=== PATIENT | male | born 1980 | race Caucasian/White ===

== ENCOUNTER 2024-07-04 08:00 | Emergency (ER) | payer BC, SELFPAY ==
[2024-07-04 08:13] VITALS: BP 123/81; PULSE 85; RESP 18; TEMP 37; O2SAT 99
--- OUTSIDE RECORDS SUMMARY | 2024-07-04 08:15 | XMS_ITS | Referral Summary ---
Author Organization [facility] [address] Address [address] [place] [address] Care Team Providers Care Supply And Distribution Manager Name Role Phone Monico Vaughn MD Primary Care Provide r Noemy Reyna Unavailable Unavailable Allergies No known active allergies Medications sertraline (ZOLOFT) 100 mg tablet Take 100 mg by mouth daily 05/10/2021 Active ALPRAZolam (XANAX) 0.5 mg tablet Take by mouth 3 (three) times a day as needed 04/23/2021 Active Active Problems No known active problems Immunizations Name Administration Dates Next Due DTP 11/07/1986, 4,07/21/1983,08/07,03/26/1982,01/29/1982 DTaP 11/07/1986, 4,07/21/1983,08/07,03/26/1982,01/29/1982 Hep B Vaccine 11/23/1998,03/17/1998,02/05/1998 Hep B, Unspecified 11/23/1998,03/17/1998, 998 IPV 11/07/1986, 4,05/19/1982,03/26,01/29/1982 Influenza, Quadrivalent, Spl it, Intramuscular 04/03/2019 Influenza, Quadrivalent, Spl it, Preservative Free, Intramuscular 04/05/2018 Influenza, Trivalent, Preser vative Free, Intramuscular 04/03/2017,04/03/2016 MMR 01/19/1995,02/22/1983 OPV 11/07/1986, 4,05/19/1982,03/26,01/29/1982 Td, adsorbed 03/17/1998,11/28/1989 Social History Tobacco Use Types Packs/Day Years Used Date Smoking Tobacco: Every Day Alcohol Use Standard Drinks/Week Comments Yes 0 (1 standard drink = 0.6 oz pure alcohol) drinks 3-4 week/ beer and vodka Personal Safety Answer Date Recorded Getting School Help Needed Not on file 08/04 Sex and Gender Information Value Date Recorded Sex Assigned at Not on file 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 Gender Identity Not on file Sexual Orientation Not on file Last Filed Vital Signs Vital Sign Reading Time Taken Comments Blood Pressure 124/84 06/22/2021 2:23 PM MAINTENANCE HELPER UTILITY ENGINEER Pulse 89 06/22/2021 2:23 PM MAINTENANCE HELPER UTILITY ENGINEER Temperature 36.8 ??C (98.3 ??F) 06/16/2020 4:12 PM CS T Respiratory Rate 18 06/16/2020 4:12 PM MAINTENANCE HELPER UTILITY ENGINEER Oxygen Saturation 97% 06/16/2020 4:12 PM MAINTENANCE HELPER UTILITY ENGINEER Inhaled Oxygen Concentration - - Weight 70.8 kg (156 lb) 06/22/2021 2:23 PM MAINTENANCE HELPER UTILITY ENGINEER Height 182.9 cm (6') 06/22/2021 2:23 PM MAINTENANCE HELPER UTILITY ENGINEER Body Mass Index 21.16 06/22/2021 2:23 PM MAINTENANCE HELPER UTILITY ENGINEER Plan of Treatment Not on file Insurance [facility] Care Teams Supply And Distribution Manager Relationship Specialty Start Date End Date Monico Vaughn MD [address] [place] [address] PCP - General 04/14/16 Noemy Reyna Reception Clerk Addiction Medicine 06/16/20
--- OUTSIDE RECORDS SUMMARY | 2024-07-04 08:15 | XMS_ITS | Clinical Summary ---
Author Organization [facility] [address] Address [address] [place] [address] Care Team Providers Care Sales Service Route Manager Name Role Phone Monico Vaughn MD [...] 01/19/1995,02/22/1983 OPV 11/07/1986, 4,05/19/1982,03/26,01/29/1982 Td, adsorbed 03/17/1998,11/28/1989 Surgical History Surgery Date Site/Laterality Comments CYST REMOVAL Medical History Medical History Date Comments Depression Anxiety Family History Medical History Relation Name Comments Cancer Mother Relation Name Status Comments Mother Social History Tobacco Use Types Packs/Day Years [...] on file 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 Gender Identity Not on file Sexual Orientation Not on file Obstetrics History Last Filed Vital Signs Vital Sign Reading Time Taken Comments Blood Pressure 124/84 06/22/2021 2:23 PM FREELANCE GRAPHIC DESIGNER Pulse 89 06/22/2021 2:23 PM FREELANCE GRAPHIC DESIGNER Temperature 36.8 ??C (98.3 ??F) 06/16/2020 4:12 PM CS T Respiratory Rate 18 06/16/2020 4:12 PM FREELANCE GRAPHIC DESIGNER Oxygen Saturation 97% 06/16/2020 4:12 PM FREELANCE GRAPHIC DESIGNER Inhaled Oxygen Concentration - - Weight 70.8 kg (156 lb) 06/22/2021 2:23 PM FREELANCE GRAPHIC DESIGNER Height 182.9 cm (6') 06/22/2021 2:23 PM FREELANCE GRAPHIC DESIGNER Body Mass Index 21.16 06/22/2021 2:23 PM FREELANCE GRAPHIC DESIGNER Plan of Treatment Health Maintenance Due Date Last Done Comments Depression Screening 1980 Hepatitis C Screening 1980 Pneumococcal vaccine <65 (1 of 2 - PCV) 11/26/1987 Varicella Vaccines (1 of 2 - 13+ 2-dose series) 1994 DTaP/Tdap/Td Vaccine (6 - Tdap) 03/18/1998 03/17/1998, 11/28/1989, 11/07/1986, Additional history exists Regular Well Visit/Exam 18-64 11/26/1999 Covid-19 Vaccine ( season) 2024 09/13/2020, 08/23/2020 Influenza Vaccine (#1) 2024 9, 04/05/2018, 04/03/2017, Additional history exists HPV Vaccines Aged Out No longer eligi ble based on patient's age to complete this topic Insurance [employer] [place] [address] [place] [id number] Care Teams Sales Service Route Manager Relationship Specialty Start Date End Date Monico Vaughn MD [address] [place] [address] PCP - General 04/14/16 Noemy Reyna Screen Print Operator Addiction Medicine 06/16/20
--- NOTE | 2024-07-04 08:22 | ED.URI ---
HPI - URI/Sore Throat General Chief Complaint: Upper Respiratory Infection Stated Complaint: body and head ache / sore throat/cough /congestion History of Present Illness HPI Narrative: Patient is a 43-year-old male, past medical history significant for anxiety and depression, presents to [facility] with 2 day history of URI symptoms, including body aches, headache, rhinorrhea, sore throat, malaise and dry cough. He denies associated abdominal pain, chest pain, diarrhea, vomiting or dysuria. He denies known sick contacts, he has not traveled. Related Data Allergies Allergy/AdvReac Type Severity Reaction Status Date / Time No Known Allergies Allergy Verified 07/04/24 08:24 Review of Systems ENT: Comments: Refer to HPI Respiratory: Comments: refer to HPI [facility] Past Medical History Medical History Anxiety disorder, unspecified Aortic diastolic murmur Pain in anterior left upper extremity Bronchitis Chest pain in adult Cough Cutaneous abscess of face Dermoid cyst of left ear Essential (primary) hypertension Fatigue Generalized abdominal pain History of ETOH abuse Left arm numbness Multinodular goiter Neck pain on left side Palpitation Right anterior shoulder pain Thyroid enlargement Unintentional weight loss Vitamin D deficiency Depression Family History Family History Mother Family history of malignant neoplasm of breast in first degree relative Social History Social History Smoking status: Heavy tobacco smoker Alcohol intake: current Substance use: never Do You Feel Safe in your Home?: Yes Lack of Transportation: No Lack of Food: Never True Current Housing: I Have Housing Concerned About Future Housing: No Difficulty Paying Gas/Electric Bills: No Difficulty Paying for Meds: No Currently Unemployed: No Education: Bachelor's Degree Difficulty w/ Childcare or Family Care: No Exam Const: General: healthy appearing Nutritional Appearance: well nourished Orientation/consciousness: patient oriented x3 Limitations: no limitations HENMT: Head: normal to inspection Face/Nose/Sinus: Normal external nose present and Normal nares present Face and sinus: normal facial exam and sinuses nontender Mouth: Yes Normal oral and palatal mucosa present Teeth and gingiva: dentition normal Throat: posterior oropharynx normal and uvula midline Other: patient does have a mild cobblestone appearance to the pharyngeal mucosa, no erythema, no exudate, no tonsil hypertrophy, no trismus Eyes: Conjunctivae: conjunctivae normal Pupils: Equal, round and reactive pupils present EOM: EOMs intact bilaterally Neck: Neck: normal visual inspection, no lymphadenopathy and no meningeal signs Resp: Effort & Inspection: normal respiratory effort Auscultation: clear to auscultation bilaterally Cardio: Rate: regular rate Rhythm: regular rhythm Skin: General skin exam: normal color Rashes: no rashes Wounds: no wounds Neuro: General: patient oriented x3 Cranial nerves: Yes Nystagmus not present Speech: normal speech Gait exam (Neuro): Normal gait present Course Course Emergency Course: strep, COVID and influenza are all negative. Patient's examination is consistent with a viral URI. Patient is encouraged to continue supportive care at home, push fluids, rest, Tylenol ibuprofen as directed [id number], Delsym for cough suppression. Patient verbalized understanding he is agreeable with plan. Follow-up with PCP stressed in 3-5 days if symptoms are not starting to improve Level of Care: Express Care Visit ([id number]) Vital Signs Vital signs: Vital Signs Temperature 37.0 C 07/04/24 08:13 Pulse Rate 85 07/04/24 08:13 Respiratory Rate 18 07/04/24 08:13 Blood Pressure 123/81 07/04/24 08:13 Pulse Oximetry 99 07/04/24 08:13 Oxygen Delivery Room Air 07/04/24 08:13 Temperature 37.0 C 07/04/24 08:13 Pulse Rate 85 07/04/24 08:13 Respiratory Rate 18 07/04/24 08:13 Blood Pressure 123/81 07/04/24 08:13 Pulse Oximetry 99 07/04/24 08:13 Oxygen Delivery Room Air 07/04/24 08:13 MDM - URI/Sore Throat MDM Narrative Medical decision making narrative: APAP, Motrin, push fluids, Delsym Differential Diagnosis Differential diagnosis: Likely upper respiratory infection, otitis media, sinusitis, viral infection, influenza and pharyngitis Lab Data Labs: Lab Results 07/04/24 07/04/24 Range/Units 08:31 08:40 POC Influenza A Ag Negative (Negative) POC Influenza B Ag Negative (Negative) POC SARS CoV-2 Ag Negative (Negative) POC Grp A Strep Screen Negative (Negative) Discharge Plan Discharge Clinical Impression: Upper respiratory infection, viral Patient Disposition: Home, Self-Care Condition: Stable Instructions: Antibiotic Form, Upper Respiratory Infection (ED) Additional Instructions: PUSH FLUIDS AND REST, YOU MAY CONTINUE TYLENOL AND IBUPROFEN DIRECTED [id number], DELSYM MAY PROVIDE ADDITIONAL COUGH SUPPRESSION. SEE YOUR PRIMARY DOCTOR IN 3-5 DAYS IF SYMPTOMS NOT STARTING TO IMPROVE Patient Language: Polish Prescriptions: No Action sertraline 100 mg tablet See Rx Instructions .ROUTE .COMPLEX Qty: 90 2RF Dose Instruction: Take 1 tablet by mouth once daily Rx Instructions: Take 1 tablet by mouth once daily Follow-up/Referrals: Monico Vaughn MD [Primary Care Provider] - Stand Alone Forms: Work/School Release IP Time of Disposition: 08:48
[2024-07-04 08:33] LABS: EDSTREPNEGPOS1 Negative (Negative)
[2024-07-04 08:41] LABS: EDCOVIDSCREEN Negative (Negative); EDINFLUASCREEN Negative (Negative); EDINFLUBSCREEN Negative (Negative)
== END 2024-07-04 08:58 | disposition home or self-care (01) ==
PROVIDERS: Emergency Provider Nurse Practitioner Family; PCP Emergency Medicine
DX: J06.9 Acute upper respiratory infection, unspecified (principal); F41.8 Other specified anxiety disorders; Z20.822 Contact with and (suspected) exposure to COVID-19; I10 Essential (primary) hypertension; E55.9 Vitamin D deficiency, unspecified
CPT/HCPCS: 87081; 87426; 87804; 87880; 99213; G0463

== ENCOUNTER 2025-01-08 04:25 | Day surgery (SDC) | payer BC, SELFPAY ==
[2025-01-03 15:22] VITALS: BMI 21.0
[2025-01-08 11:06] VITALS: BP 111/74; PULSE 69; RESP 18; TEMP 36.7; O2SAT 98; BMI 20.7
--- NOTE | 2025-01-08 11:06 | WPDANESEPPF ---
Anes - Initial Pre Proc Eval Procedure: Operation Date: 01/08/25 12:30 Proposed Procedures p Diagnostic Colonoscopy - Nick Guzman MD Date/Time: 01/08/25 11:06 Surgeon: Nick Guzman MD Pre Op Diagnosis: Noninfective gastroenteritis and colitis Patient Data Age: 44 Gender: M Height: 1.83 m Weight: 70.4 kg Allergies Allergy/AdvReac Type Severity Reaction Status Date / Time No Known Allergies Allergy Verified 01/08/25 11:05 Home Medications ?Medication ?Instructions ?Recorded ?Confirmed ?Type sertraline 100 mg tablet See Rx Instructions .Route 09/10/24 01/03/25 Rx .COMPLEX #90 tabs biotin 1 tablet PO DAILY 01/03/25 01/03/25 History multivitamin (Daily Multi-Vitamin 1 tablet PO DAILY 01/03/25 01/03/25 History tablet) Patient hx anesthesia problems: none Family hx anesthesia problems: none Results Review: All pre-operative results and documents have been reviewed as part of the pre-operative evaluation. [facility] Past Medical History Medical History (Updated 09/25/24 @ 15:24 by MILA PackN-C) Tobacco use Weight loss Change in bowel habits Fecal urgency Chronic diarrhea Abscess Rash and nonspecific skin eruption Anxiety disorder, unspecified Aortic diastolic murmur Pain in anterior left upper extremity Bronchitis Chest pain in adult Cough Cutaneous abscess of face Dermoid cyst of left ear Essential (primary) hypertension Fatigue Generalized abdominal pain History of ETOH abuse Left arm numbness Multinodular goiter Neck pain on left side Palpitation Right anterior shoulder pain Thyroid enlargement Unintentional weight loss Vitamin D deficiency Depression Family History Family History Mother Family history of malignant neoplasm of breast in first degree relative Social History Social History Smoking packs per day: 0.5 Smoking cigarettes per day: 10.0 Years smoked: 22 Smoking pack-years: 11.00 Smoking status: Current every day smoker Tobacco type: cigarettes Smokeless tobacco user: other Additional smoking assessment comments: ALSO USES NICOTINE POUCHS Alcohol intake: former Substance use: never Substance use type: does not use Do You Feel Safe in your Home?: Yes Lack of Transportation: No Lack of Food: Never True Current Housing: I Have Housing Concerned About Future Housing: No Difficulty Paying Gas/Electric Bills: No Difficulty Paying for Meds: No Currently Unemployed: No Education: Bachelor's Degree Difficulty w/ Childcare or Family Care: No Living arrangements: with family Spiritual care concerns: No Anes - Eval Final PreProcedure Day of Procedure 01/08/25 11:06 Patient weight: normal Heart: regular rate and rhythm Lungs: clear to auscultation and normal air movement Airway: Mallampati scale class II Neurological: alert and oriented Last oral intake: >/= 8 hours ASA classification: II Emergent: no Anesthetic plan: proceed Anesthesia type and monitoring: general GIVS and standard monitoring Results Review: All pre-operative results and documents have been reviewed as part of the pre-operative evaluation. Informed Consent: The patient's anesthetic plan and its attendant risks and benefits were discussed with the patient/family/POA. Questions were solicited and answers provided to the satisfaction of the patient/family/POA.
[2025-01-08] MEDS: LACTATED RINGERS 1,000 ML 150 ML IV CONT (11:08)
--- NOTE | 2025-01-08 12:38 | P.HP_ITS ---
History of Present Illness History of Present Illness Consent: Risks, benefits, and alternatives have been discussed and questions answered. Patient agrees to proceed with procedure. Chief complaint: Noninfective gastroenteritis and colitis Narrative: Kobi Ferrari is a 44 year old male here for first colonoscopy, months of loose stool Review of Systems Review of Systems: All systems reviewed & are unremarkable except as noted in HPI and below PMFSH Past Medical History Medical History (Updated 09/25/24 @ 15:24 by Preeti Prarish, SENIOR DATA QUALITY ANALYST-C) Tobacco use Weight loss Change in bowel habits Fecal urgency Chronic diarrhea Abscess Rash and nonspecific skin eruption Anxiety disorder, unspecified Aortic diastolic murmur Pain in anterior left upper extremity Bronchitis Chest pain in adult Cough Cutaneous abscess of face Dermoid cyst of left ear Essential (primary) hypertension Fatigue Generalized abdominal pain History of ETOH abuse Left arm numbness Multinodular goiter Neck pain on left side Palpitation Right anterior shoulder pain Thyroid enlargement Unintentional weight loss Vitamin D deficiency Depression Family History Family History Mother Family history of malignant neoplasm of breast in first degree relative Social History Social History Smoking packs per day: 0.5 Smoking cigarettes per day: 10.0 Years smoked: 22 Smoking pack-years: 11.00 Smoking status: Current every day smoker Tobacco type: cigarettes Smokeless tobacco user: other Additional smoking assessment comments: ALSO USES NICOTINE POUCHS Alcohol intake: former Substance use: never Substance use type: does not use Do You Feel Safe in your Home?: Yes Lack of Transportation: No Lack of Food: Never True Current Housing: I Have Housing Concerned About Future Housing: No Difficulty Paying Gas/Electric Bills: No Difficulty Paying for Meds: No Currently Unemployed: No Education: Bachelor's Degree Difficulty w/ Childcare or Family Care: No Living arrangements: with family Spiritual care concerns: No Meds Home Medications and Allergies Home Medications ?Medication ?Instructions ?Recorded ?Confirmed ?Type sertraline 100 mg tablet See Rx Instructions .Route 09/10/24 01/03/25 Rx .COMPLEX #90 tabs biotin 1 tablet PO DAILY 01/03/25 01/03/25 History multivitamin (Daily Multi-Vitamin 1 tablet PO DAILY 01/03/25 01/03/25 History tablet) Allergies Allergy/AdvReac Type Severity Reaction Status Date / Time No Known Allergies Allergy Verified 01/08/25 11:05 Vital Signs Vital Signs - 24 hr 01/08/25 11:06 Temperature 98.1 F Pulse Rate 69 Respiratory Rate 18 Blood Pressure 111/74 Pulse Oximetry 98 Oxygen Delivery Room Air Exam Const: General: comfortable and no acute distress HENMT: Face/Nose/Sinus: Normal nares present Eyes: General: appearance normal, both eyes and all related structures Neck: Neck: no JVD Resp: Auscultation: clear to auscultation bilaterally Cardio: Rate: regular rate Rhythm: regular rhythm GI: Inspection: non-distended GI Palp: Yes Soft to palpation Skin: General skin exam: normal color Neuro: General: gait normal Speech: normal speech Extrem: General: normal to inspection Psych: Mental Status: mental status grossly normal Assessment and Plan Assessment and plan (1) Chronic diarrhea: Code(s): K52.9 - Noninfective gastroenteritis and colitis, unspecified Status: Acute Assessment and Plan: colonoscopy with bx
--- NOTE | 2025-01-08 12:58 | S_PTH ---
PATIENT: Kobi Ferrari LOC: [facility] Jarrell#:[id number] AGE/SX: 44/M ROOM: RE01/08/[address]: Nick Guzman MD : 1980 BED: DIS: 01/08/2025 SPEC #: [id number] RECD: 01/08/25 13:31 STATUS: SINDY REFrancine #: [id number] POLO: 01/08/25 12:[address]: Nick Guzman DEPT: [facility] Surgical RECD BY: Dianna Mejia ENTERED: 01/08/25 13:31 SP TYPE: Surgical OTHR DR: Monico Vaughn MD Tissues: A - Colon Biopsy B - Colon Polypectomy Procedures: Hematoxylin and Eosin Stain Gross and Microscopic Level 4
[2025-01-08 12:59] VITALS: BP 90/57; PULSE 63; RESP 16; O2SAT 98
[2025-01-08 13:09] VITALS: BP 96/66; PULSE 60; RESP 19; O2SAT 99
[2025-01-08 13:19] VITALS: BP 103/73; PULSE 58; RESP 13; O2SAT 100
== END 2025-01-08 13:39 | disposition home or self-care (01) ==
PROVIDERS: PCP Emergency Medicine; Referring Provider Nurse Practitioner Family; Visit Provider Internal Medicine Gastroenterology
PROC: 0DJD8ZZ Inspection of Lower Intestinal Tract, Via Natural or Artificial Opening Endoscopic (ICD-10-PCS; CPT 45378; principal; 2025-01-08 12:30)
DX: D12.5 Benign neoplasm of sigmoid colon (principal); K64.8 Other hemorrhoids; K52.9 Noninfective gastroenteritis and colitis, unspecified; I10 Essential (primary) hypertension; E55.9 Vitamin D deficiency, unspecified; R15.2 Fecal urgency; F41.9 Anxiety disorder, unspecified; I35.8 Other nonrheumatic aortic valve disorders; R00.2 Palpitations; F32.A Depression, unspecified; F17.210 Nicotine dependence, cigarettes, uncomplicated; Z80.3 Family history of malignant neoplasm of breast
CPT/HCPCS: 45385; 45380; 88305; J2003; J2704; J7120